=== PATIENT | female | born 1970 | race Caucasian/White ===

== ENCOUNTER 2024-04-26 14:52 | Outpatient (RCR) | payer OTHER, SELFPAY | END 2024-04-26 23:59 | disposition home or self-care (01) | LOC: RPT 14:52 | PROVIDERS: ATTENDING PHYSICIAN Urology; FAMILY PHYSICIAN Family Medicine | DX: N32.81 Overactive bladder (principal); N95.8 Other specified menopausal and perimenopausal disorders; N30.10 Interstitial cystitis (chronic) without hematuria; M62.89 Other specified disorders of muscle; Z73.6 Limitation of activities due to disability; N94.10 Unspecified dyspareunia; R10.2 Pelvic and perineal pain | CPT/HCPCS: 97140; 97163; 97530 ==

== ENCOUNTER 2024-05-24 08:59 | Outpatient (RCR) | payer OTHER, SELFPAY | END 2024-05-24 23:59 | disposition home or self-care (01) | LOC: RPT 08:59 | PROVIDERS: ATTENDING PHYSICIAN Urology; FAMILY PHYSICIAN Family Medicine | DX: N32.81 Overactive bladder (principal); N95.8 Other specified menopausal and perimenopausal disorders; N30.10 Interstitial cystitis (chronic) without hematuria; M62.89 Other specified disorders of muscle; Z73.6 Limitation of activities due to disability; N94.10 Unspecified dyspareunia; R10.2 Pelvic and perineal pain | CPT/HCPCS: 97140; 97530 ==

== ENCOUNTER 2024-06-24 15:15 | Outpatient (RCR) | payer OTHER, SELFPAY | END 2024-06-24 23:59 | disposition home or self-care (01) | LOC: RPT 15:15 | PROVIDERS: ATTENDING PHYSICIAN Urology; FAMILY PHYSICIAN Family Medicine | DX: N32.81 Overactive bladder (principal); N95.8 Other specified menopausal and perimenopausal disorders; N30.10 Interstitial cystitis (chronic) without hematuria; M62.89 Other specified disorders of muscle; Z73.6 Limitation of activities due to disability; N94.10 Unspecified dyspareunia; R10.2 Pelvic and perineal pain | CPT/HCPCS: 97140; 97530 ==

== ENCOUNTER 2024-07-15 07:30 | Outpatient (RCR) | payer OTHER, SELFPAY | END 2024-07-15 23:59 | disposition home or self-care (01) | LOC: RPT 07:30 | PROVIDERS: ATTENDING PHYSICIAN Urology; FAMILY PHYSICIAN Family Medicine | DX: N32.81 Overactive bladder (principal); N95.8 Other specified menopausal and perimenopausal disorders; N30.10 Interstitial cystitis (chronic) without hematuria; M62.89 Other specified disorders of muscle; Z73.6 Limitation of activities due to disability; N94.10 Unspecified dyspareunia; R10.2 Pelvic and perineal pain | CPT/HCPCS: 97140; 97530 ==

== ENCOUNTER 2024-08-24 09:09 | Outpatient (RCR) | payer OTHER, SELFPAY | END 2024-08-24 23:59 | disposition home or self-care (01) | LOC: RPT 09:09 | PROVIDERS: ATTENDING PHYSICIAN Urology; FAMILY PHYSICIAN Family Medicine | DX: N32.81 Overactive bladder (principal); N95.8 Other specified menopausal and perimenopausal disorders; N30.10 Interstitial cystitis (chronic) without hematuria; M62.89 Other specified disorders of muscle; Z73.6 Limitation of activities due to disability; N94.10 Unspecified dyspareunia; R10.2 Pelvic and perineal pain | CPT/HCPCS: 97110; 97140; 97530 ==

== ENCOUNTER 2024-10-06 10:03 | Outpatient (RCR) | payer OTHER, SELFPAY | END 2024-10-06 23:59 | disposition home or self-care (01) | LOC: RPT 10:03 | PROVIDERS: ATTENDING PHYSICIAN Urology; FAMILY PHYSICIAN Family Medicine | DX: N32.81 Overactive bladder (principal); N95.8 Other specified menopausal and perimenopausal disorders; N30.10 Interstitial cystitis (chronic) without hematuria; M62.89 Other specified disorders of muscle; Z73.6 Limitation of activities due to disability; N94.10 Unspecified dyspareunia; R10.2 Pelvic and perineal pain | CPT/HCPCS: 97110; 97530 ==

== ENCOUNTER 2024-11-16 10:08 | Outpatient (RCR) | payer OTHER, SELFPAY | END 2024-11-16 23:59 | disposition home or self-care (01) | LOC: RPT 10:08 | PROVIDERS: ATTENDING PHYSICIAN Urology; FAMILY PHYSICIAN Family Medicine | DX: N32.81 Overactive bladder (principal); N95.8 Other specified menopausal and perimenopausal disorders; N30.10 Interstitial cystitis (chronic) without hematuria; M62.89 Other specified disorders of muscle; Z73.6 Limitation of activities due to disability; N94.10 Unspecified dyspareunia; R10.2 Pelvic and perineal pain | CPT/HCPCS: 97530 ==

== ENCOUNTER → 2024-11-17 11:01 | Outpatient (REF) | payer OTHER, SELFPAY | LOC: HWRAD 11:01 | PROVIDERS: ATTENDING PHYSICIAN Family Medicine | DX: M25.512 Pain in left shoulder (principal) | CPT/HCPCS: 73030 ==

== ENCOUNTER → 2024-12-03 07:56 | Outpatient (REF) | payer OTHER, SELFPAY | LOC: WDC 07:56 | PROVIDERS: ATTENDING PHYSICIAN Family Medicine | DX: Z12.31 Encounter for screening mammogram for malignant neoplasm of breast (principal) | CPT/HCPCS: 77063; 77067 ==

== ENCOUNTER → 2025-03-09 19:56 | Outpatient (REF) | payer OTHER, SELFPAY | LOC: PAVMRI 19:56 | PROVIDERS: ATTENDING PHYSICIAN Family Medicine | DX: M25.512 Pain in left shoulder (principal) | CPT/HCPCS: 73221 ==